=== PATIENT | female | born 1950 | race Caucasian/White ===

== ENCOUNTER → 2017-08-22 | Outpatient (CLI) | payer OTHER ==
--- NOTE | 2017-08-22 17:50 | DIAGNOSTIC IMAGING REPORT ---
RIGHT KNEE MRI HISTORY: RIGHT KNEE PAIN COMPARISON STUDY: Right knee 08/09/2017. TECHNIQUE: Multiplanar multisequence MRI of the right knee was performed according to standard department protocol without the use of contrast. FINDINGS: Menisci: The lateral meniscus is intact. There is an oblique tear extending to the undersurface of the body and posterior horn of the medial meniscus. Ligaments: The anterior and posterior cruciate ligaments are intact. The medial and lateral collateral ligaments are normal in appearance. Extensor mechanism: The quadriceps tendon and patellar ligament are intact. Articular cartilage and bone: Mild cartilage thinning within the medial patellar facet, medial femoral condyle, and medial tibial plateau. No fracture or dislocation. Normal marrow signal intensity seen throughout the visualized osseous structures. Joint effusion: Moderate. Soft tissues: Anterior subcutaneous edema. Small popliteal cyst. IMPRESSION: 1. Oblique tear within the body and posterior horn of the medial meniscus. 2. Moderate joint effusion. 3. Mild osteoarthritis as described above. 4. Small popliteal cyst. Electronically signed by: Rhys Holt M.D. 08/22/2017 5:48 PM Dictated Date/Time: 08/22/2017 5:43 PM
== END | disposition home or self-care (01) ==
LOC: C.MRI 16:52
PROVIDERS: ATTEND Orthopaedic Surgery
DX: S83.203A Other tear of unspecified meniscus, current injury, right knee, initial encounter (principal); X58.XXXA Exposure to other specified factors, initial encounter; M17.11 Unilateral primary osteoarthritis, right knee; M71.21 Synovial cyst of popliteal space [Baker], right knee

== ENCOUNTER → 2017-10-24 | Day surgery (SDC) | payer OTHER ==
[2017-10-02 15:37] LABS: BASO % 0.4 %; BASO ABS # 0.04 K/uL (0-0.2); COMPLETE YES; EOS % 3.1 %; HEMATOCRIT 38.7 % (37-47); IG% 0.6 %; LYMPH % 22.5 %; LYMPH ABS # 2.22 K/uL (1.2-3.4); MEAN CELL VOLUME 91.3 fL (80-100); MEAN CORPUSCULAR HEMOGLOBIN 29.7 pg (25-34); MEAN CORPUSCULAR HGB CONC 32.6 g/dl (32-36); MEAN PLATELET VOLUME 9.9 fL (7.4-10.4); MONO % 8.5 %; NEUT % 64.9 %; PLATELET COUNT 394 K/uL (130-400); RED BLOOD COUNT 4.24 M/uL (4.2-5.4); WHITE BLOOD COUNT 9.86 K/uL (4.8-10.8)
[2017-10-02 16:36] LABS: POTASSIUM 3.8 mmol/L (3.5-5.1)
[2017-10-04 14:07] VITALS: Ht 156.2 cm; Wt 82.7 kg
[~2017-10-24] VITALS: Ht 156.2 cm; Wt 82.7 kg
[~2017-10-24] MED LIST: ASPI81TA28 PO; ATROPINE SULFATE 0.1 MG/ML 5ML SYR IV PRN; B-COTAB53 PO; BETAMETH SOD PHOS/ACETATE IA 6 MG/ML ONE; BUPIVACAINE 0.5 % 5 MG/1 ML MPF 30ML VIAL ONE; BUSP5TAB59 PO; CEFAZOLIN 2000MG IV PUSH 10 ML IV SCH; DOCU100C31 PO; EpHEDrine SULFATE INJ 50 MG/ML AMP IV PRN; EpINEphrine INJ 1MG/ML AMP 1 MG/ML AMP ONE; FENTANYL CITRATE INJ 50 MCG/1 ML 2 ML VIAL IV PRN; FENTANYL CITRATE INJ 50 MCG/1 ML 2 ML VIAL ONE; FEXO1TAB49 PO; FLUO40CA8 PO; IBUP-1450 PO; KETOROLAC TROMETHAMINE 30 MG/ML VIAL ONE; LACTATED RINGER'S 1000ML 1,000 ML IV SCH; LIDOCAINE HCL 2% 2 ML VIAL (20MG/ML) ONE; LISI5TAB PO; MIDAZOLAM HCL 1 MG/ML 2ML VIAL ONE; MULTTAB58 PO; ONDANSETRON INJ 2 MG/ML 2 ML VIAL IV PRN; ONDANSETRON INJ 2 MG/ML 2 ML VIAL ONE; PATIENT'S ALLERGY INFO NEEDS ENTERED SCH; PRLSR20 PO; PROMETHAZINE HCL INJ 6.25 MG in SODIUM CHLORIDE 0.9% 50ML 50 ML IV PRN; PROPOFOL IV EMULSION 10 MG/ML 20 ML VIAL IV ONE; ROPIVACAINE 0.5% 5 MG/ML 30 ML VIAL ONE; SIMV40TA2 PO; SODIUM CHLORIDE 0.9% 1000ML 1,000 ML IV SCH; SRVDIN60 INH; TRAM-10 PO; TRAMADOL HCL 50 MG TAB PO PRN; VNTHFA/IN INH
--- NOTE | 2017-10-24 08:11 | History & Physical Bridge - SC ---
H&P Re-Evaluation Bridge Note: I have examined the patient, reviewed the History & Physical and in the interval since the performance of the History & Physical I have noted the following changes of clinical significance: No changes noted
--- NOTE | 2017-10-24 09:22 | [facility] Post Operative Brief Note ---
Immediate Operative Summary Operative Date Oct 24, 2017. Pre-Operative Diagnosis Right Knee Medial Meniscus Tear, Left Knee Degenerative Joint Disease Post-Operative Diagnosis Same Procedure(s) Performed Right Knee Arthroscopy, Partial Medial Meniscectomy, Removal of Plica Band; Left Knee Steroid Injection, 2 CC Celestone, 8 CC 0.5% Marcaine Surgeon Dr. Kearns [employer] Social Worker Surgeon(s) Zachariah Fonseca PA-C Estimated Blood Loss 0ml Findings ABOVE Specimens None Anesthesia LMA Complication(s) None Disposition Recovery Room / PACU
--- NOTE | 2017-10-24 09:32 | Discharge Instructions-SurgCtr ---
Discharge Instructions Date of Service Oct 24, 2017. Visit Reason for Visit: Right Knee Medial Meniscus Tear, Left Knee Djd Discharge Discharge Diagnosis / Problem: SAME ABOVE Discharge Goals Goal(s): Decrease discomfort, Improve function Medications Stopped Medications Name(s): Aspirin and Ibuprofen stopped 10/16 Activity Recommendations Activity Limitations: as noted below Lifting Limitations: gradually increase as tolerated Exercise/Sports Limitations: until after follow-up appointment Shower/Bathe: tomorrow Anesthesia . Post Anesthesia Instructions: If you have had General Anesthesia or IV Sedation: * Do not drive today. * Resume driving when surgeon permits. * Do not make important decisions or sign legal documents today. * Call surgeon for: 1. Temperature elevations greater than 101 degrees F. 2. Uncontrollable pain. 3. Excessive bleeding. 4. Persistent nausea and vomiting. 5. Medication intolerance (nausea, vomiting or rash). * For nausea and vomiting use only clear liquids such as: tea, soda, bouillon until nausea subsides, then gradually increase diet as tolerated. * If you have any concerns or questions, call your surgeon's office. If physician is unavailable and it is an emergency, call 911 or go to the nearest emergency room. . Instructions / Follow-Up Instructions / Follow-Up MEDICATIONS: * Resume previous medications unless instructed otherwise by your surgeon. * Always take pain medication on a full stomach or with food to avoid upset stomach. * Do not drink alcohol or drive while taking narcotics. * Ibuprofen or Tylenol may be taken if narcotic not needed. SPECIAL CARE INSTRUCTIONS: __ None _X_ Keep extremity elevated and iced x 48 hours; apply ice 20-30 minutes 8-10 times/day. May remove at night. __ Crutches __ May discard when able __ Brace/Post-op shoe __ 24 hrs/day __ Remove at night _X_ Dressing __ Maintain until seen in office, may shower with plastic over site _X_ Remove dressings in 24-48 hours and then may shower _X_ Cover incisions with band-aids after showering __ Do not remove steri-strips Call physician if chills or temperature rises above 102 degrees or pain unrelieved by prescribed pain medications. Office [phone] Diet Recommendations Home Diet: resume previous diet Procedures Procedures Performed: Right Knee Arthroscopy, Partial Medial Meniscectomy, Removal of Plica Band; Left Knee Steroid Injection, 2 CC Celestone, 8 CC 0.5% Marcaine Pending Studies Studies pending at discharge: no Medical Emergencies . Who to Call and When: Medical Emergencies: If at any time you feel your situation is an emergency, please call 911 immediately. . Non-Emergent Contact Non-Emergency issues call your: Primary Care Provider . . "Provider Documentation" section prepared by Tico Fonseca. .
--- NOTE | 2017-10-24 09:44 | OPERATIVE REPORT ---
DATE OF OPERATION: 10/24/2017 PREOPERATIVE DIAGNOSES: 1. Medial meniscus tear, right knee. 2. Synovitis and degenerative joint disease, left knee. POSTOPERATIVE DIAGNOSES: 1. Medial meniscus tear, right knee. 2. Plica band patellofemoral joint. 3. Small cartilaginous loose bodies, suprapatellar joint. 4. Synovitis and severe degenerative joint disease, left knee. PROCEDURE: 1. Cortisone injections to left knee through Celestone and Marcaine. 2. Right knee arthroscopy, partial medial meniscectomy with removal of plica band and loose bodies, right knee. SURGEON: Carlos Kearns MD. MILITARY ADMINISTRATIVE TECHNICIAN: Tico Fonseca PA-C. ANESTHESIOLOGIST: Rajendra Queen MD. ANESTHESIA: LMA. DRAINS: None. COMPLICATIONS: None. CONDITION: The patient tolerated the procedure well and returned to recovery room in apparent satisfactory condition. INDICATIONS FOR SURGERY: Lottie is a 67-year-old female who has had increasing pain and discomfort in her right knee. History, MRI and physical exam consistent with medial meniscus tear. She has also had some inflammation, irritation, DJD of the left knee, elected to go ahead and give an injection at the time of surgery for the right knee. Procedure, expected outcomes, side effects and risks were all explained in detail. DESCRIPTION OF PROCEDURE: The patient was taken to the OR at which time she was placed supine on the operating table, put to sleep by anesthesia department. We went ahead and gave a cortisone shot under sterile conditions to the left knee through the Celestone and Marcaine. The right knee then was prepped and draped in usual sterile fashion for surgery. Began arthroscopic examination in the anteromedial and anterolateral portals. A thigh tourniquet was placed up to 300 mmHg. Immediately we found a posterior horn medial meniscus tear at the root. We came in with upbiting scissors and full radius resector and trimmed back to a stable rim. There were some mild changes to the articular surface. A light debridement was done here. The ACL and lateral compartment were found to be normal. At the patellofemoral joint, we found a large plica band and cartilaginous loose bodies, small. These were removed and plica band was removed also. The knee then was copiously irrigated. All cannulas were removed. Portals were closed with 4-0 nylon sutures. 30 mL of ropivacaine, 10 mg of Toradol, 1 mL epinephrine was placed in the knee joint. Placed a sterile dressing of Xeroform, 4 x 4, ABD, Sof-Rol, and Cruz bandage and returned back to recovery room in apparent satisfactory condition. SURGICAL FINDINGS: Include; 1. Chronic medial meniscus tear with plica band and several cartilaginous small loose bodies on the right knee. 2. DJD and synovitis of the left knee. I attest to the content of the Intraoperative Record and any orders documented therein. Any exception s are noted below.
[2017-10-24] MEDS: FENTANYL CITRATE INJ 50 MCG/1 ML 2 ML VIAL IV PRN ×2 (09:48→09:57)
[2017-10-24 10:31] VITALS: TEMP 36.5
--- NOTE | 2017-10-24 10:57 | Anesthesia Progress Nt - [facility] ---
Anesthesia Post Op Note Date & Time Oct 24, 2017 at 10:57 Vital Signs Pain Intensity: 2.0 Vital Signs Past 12 Hours Date Time Temp Pulse Resp B/P (MAP) Pulse Ox O2 Delivery O2 Flow Rate FiO2 10/24/17 10:31 36.5 83 18 124/78 (93) 94 Room Air 10/24/17 10:17 84 15 10/24/17 10:17 84 15 98 10/24/17 10:16 123/58 10/24/17 10:12 85 17 10/24/17 10:12 85 17 97 10/24/17 10:11 127/59 10/24/17 10:11 37.2 86 16 127/59 98 Diffusion Mask 6 10/24/17 10:07 92 15 95 10/24/17 10:07 91 15 10/24/17 10:06 133/74 10/24/17 10:02 83 11 96 10/24/17 10:02 85 11 10/24/17 10:01 119/67 10/24/17 09:58 88 15 94 10/24/17 09:58 88 15 10/24/17 09:56 134/67 10/24/17 09:53 86 19 97 10/24/17 09:53 86 19 10/24/17 09:51 119/68 10/24/17 09:48 83 13 97 10/24/17 09:48 82 13 10/24/17 09:47 84 17 10/24/17 09:47 84 17 97 10/24/17 09:46 128/72 10/24/17 09:42 81 15 10/24/17 09:42 82 15 97 10/24/17 09:40 128/72 10/24/17 09:37 83 19 96 10/24/17 09:37 84 19 10/24/17 09:36 119/76 10/24/17 09:35 80 11 10/24/17 09:35 79 11 96 10/24/17 09:30 83 15 148/77 95 10/24/17 09:30 36.3 82 12 148/77 95 Diffusion Mask 6 10/24/17 09:30 83 15 10/24/17 07:53 36.6 90 18 141/88 (105) 99 Room Air Notes Mental Status: alert / awake / arousable, participated in evaluation Pt Amnestic to Procedure: Yes Nausea / Vomiting: adequately controlled Pain: adequately controlled Airway Patency, RR, SpO2: stable & adequate BP & HR: stable & adequate Hydration State: stable & adequate Anesthetic Complications: no major complications apparent
[2017-10-24 11:14] VITALS: BP 122/80; PULSE 86; O2SAT 95
== END | disposition home or self-care (01) ==
LOC: X.SURG 07:37
PROVIDERS: ATTEND Orthopaedic Surgery
DX: M23.221 Derangement of posterior horn of medial meniscus due to old tear or injury, right knee (principal); M65.862 Other synovitis and tenosynovitis, left lower leg; M67.51 Plica syndrome, right knee; M23.41 Loose body in knee, right knee; M17.12 Unilateral primary osteoarthritis, left knee; I10 Essential (primary) hypertension; E78.00 Pure hypercholesterolemia, unspecified; J45.909 Unspecified asthma, uncomplicated; Z88.2 Allergy status to sulfonamides; Z98.890 Other specified postprocedural states; Z85.828 Personal history of other malignant neoplasm of skin; Z79.899 Other long term (current) drug therapy; Z79.82 Long term (current) use of aspirin